=== PATIENT | male | born 1970 | race Caucasian/White ===

== ENCOUNTER 2017-06-03 15:42 | Emergency (ER) | payer OTHER ==
[2017-06-03] MEDS ORDERED: TORAdol 30 mg Injection IM ONE (16:03)
[2017-06-03 16:04] VITALS: BP 148/93; PULSE 97; O2SAT 95
[2017-06-03] MEDS ORDERED: TORAdol 30 mg Injection ONE (16:09)
--- NOTE | 2017-06-03 16:17 | ERPHSYRPT ---
- History of Present Illness Time Seen by Provider: 06/03/17 16:14 Source: patient Exam Limitations: no limitations Patient Subjective Stated Complaint: pt states he fell off a ladder this afternoon at 1530. pt c/o pain to right shoulder, right knee and left ankle. denies any head injury. Triage Nursing Assessment: pt pink, warm, dry. laceration noted to right patella. swelling no deformity noted to left ankle. no swelling noted to right shoulder. Physician History: 46 y/o male comes to the ER after falling off the 5th rung of a ladder. Pt mentions that he landed on his right shoulder, right knee and left foot. Pt describes the pain as sharp, constant, 4/10 and pt has not taken any pain meds. No head injury, neck or back pain. No LOC and the patient is not on any blood thinners. Timing/Duration: today Severity: mild Modifying Factors: Improves With: movement Associated Symptoms: denies symptoms Allergies/Adverse Reactions: No Known Drug Allergies Allergy (Unverified 06/03/17 16:04) Hx Tetanus, Diphtheria Vaccination/Date Given: Yes (up to date) Hx Influenza Vaccination/Date Given: No Hx Pneumococcal Vaccination/Date Given: No Immunizations Up to Date: Yes - Review of Systems Constitutional: No Fever, No Chills Eyes: No Symptoms Ears, Nose, & Throat: No Symptoms Respiratory: No Cough, No Dyspnea Cardiac: No Chest Pain, No Edema, No Syncope Abdominal/Gastrointestinal: No Abdominal Pain, No Nausea, No Vomiting, No Diarrhea Genitourinary Symptoms: No Dysuria Musculoskeletal: Joint Redness, Joint Pain, Joint Swelling, No Back Pain, No Neck Pain Skin: No Rash Neurological: No Dizziness, No Focal Weakness, No Sensory Changes Psychological: No Symptoms Endocrine: No Symptoms All Other Systems: Reviewed and Negative - Past Medical History Pertinent Past Medical History: No - Past Surgical History Past Surgical History: No - Social History Smoking Status: Never smoker Exposure to second hand smoke: No Drug Use: none Patient Lives Alone: No - Nursing Vital Signs Nursing Vital Signs: Initial Vital Signs Temperature 98.2 F 06/03/17 15:58 Pulse Rate 97 H 06/03/17 15:58 Respiratory Rate 18 06/03/17 15:58 Blood Pressure 148/93 06/03/17 15:58 O2 Sat by Pulse Oximetry 95 09/09/17 15:58 Pain Scale Pain Intensity 3 - Physical Exam General Appearance: no apparent distress, alert Eye Exam: PERRL/EOMI, eyes nml inspection Ears, Nose, Throat Exam: normal ENT inspection, TMs normal, pharynx normal, moist mucous membranes Neck Exam: normal inspection, non-tender, supple, full range of motion Respiratory Exam: normal breath sounds, lungs clear, No respiratory distress Cardiovascular Exam: regular rate/rhythm, normal heart sounds, normal peripheral pulses Gastrointestinal/Abdomen Exam: soft, normal bowel sounds, No tenderness, No mass Back Exam: normal inspection, normal range of motion, No CVA tenderness, No vertebral tenderness Extremity Exam: normal inspection, pelvis stable, joint swelling, limited range of motion, swelling, No deformities Neurologic Exam: alert, oriented x 3, cooperative, normal mood/affect, nml cerebellar function, nml station & gait, sensation nml, No motor deficits Skin Exam: normal color, warm, dry, No rash Lymphatic Exam: No adenopathy SpO2: 95 Oxygen Delivery: Room Air Procedures - Laceration/Wound Repair Right Lower Anterior Volar Knee Wound Location: Right, lower leg Wound Length (cm): 1 Wound's Depth, Shape: superficial Wound Explored: clean Irrigated: Yes Hibiclens Prep: Yes Anesthesia: local, 1% Lidocaine Volume Anesthetic (ccs): 5 Wound Debrided: minimal Wound Repaired With: sutures Suture Size/Type: 4-0, ethilon Number of Sutures: 4 Layer Closure?: Yes Sterile Dressing Applied?: Yes - Course Nursing assessment & vital signs reviewed: Yes Ordered Tests: Medication Summary Discontinued Medications Generic Name Dose Route Start Last Admin Trade Name Elo PRN Reason Stop Dose Admin Ketorolac Tromethamine 60 mg 06/03/17 16:03 06/03/17 16:10 Toradol 30 Mg Injection IM 06/03/17 16:04 60 mg STAT ONE Administration Ketorolac Tromethamine Confirm 06/03/17 16:09 Toradol 30 Mg Injection Administered 06/03/17 16:10 Dose 60 mg .ROUTE .STK-MED ONE - Progress Progress: improved Progress Note: 06/03/17 17:32 The x ray of the shoulder, knee and foot do not show any acute fracture. Pt will be placed in a sling and an umer wrap. See Procedure Note for laceration repair of knee. - Departure Time of Disposition: 17:33 Departure Disposition: Home Clinical Impression: Knee laceration Qualifiers: Encounter type: initial encounter Laterality: right Qualified Code(s): S81.011A - Laceration without foreign body, right knee, initial encounter Shoulder pain Qualifiers: Chronicity: acute Laterality: right Qualified Code(s): M25.511 - Pain in right shoulder Foot pain Qualifiers: Laterality: left Qualified Code(s): M79.672 - Pain in left foot Condition: Stable Critical Care Time: Yes Critical Care Time(excluding separately billable procedures): 30-74 minutes Referrals: DOCTOR,NO FAMILY [NON-STAFF PHY W/O PRIVILEGES] - Instructions: Laceration Repair, Shoulder Pain, Foot Pain Additional Instructions: Follow up with your PCP in the next few days if there is no improvement. Prescriptions: Ketorolac Tromethamine [Toradol] 10 mg PO QID PRN #20 tablet PRN Reason: Pain
--- NOTE | 2017-06-03 21:29 | XRAY ---
Indication: Pain following fall from ladder. Comparison: None 3 views of the right shoulder obtained. No bony, articular, or soft tissue abnormalities.
--- NOTE | 2017-06-03 21:30 | XRAY ---
Indication: Pain following fall from ladder. Laceration. Comparison: None 3 views of the right knee demonstrates prepatellar soft tissue swelling. No other bony, articular, or soft tissue abnormalities.
--- NOTE | 2017-06-03 21:32 | XRAY ---
Indication: Pain following fall from ladder. Comparison: None 3 nonweightbearing views of the right foot demonstrates anterior soft tissue swelling and tiny well-circumscribed ossification anterior to the talonavicular articulation either degenerative versus old injury. No other bony, articular, or soft tissue abnormalities.
== END 2017-06-03 17:42 | disposition home or self-care (01) ==
LOC: ED 15:42
PROC: 0HQKXZZ Repair Right Lower Leg Skin, External Approach (ICD-10-PCS; principal; 2017-06-03)
DX: S81.011A Laceration without foreign body, right knee, initial encounter (principal); M25.511 Pain in right shoulder; M79.672 Pain in left foot; W11.XXXA Fall on and from ladder, initial encounter
CPT/HCPCS: 12001; 73030; 73562; 73630; 96372; 99284; J1885